=== PATIENT | male | born 1935 | race Caucasian/White ===

== ENCOUNTER 2019-07-03 10:16 | Emergency (ER) | payer MEDICARE ==
[~2019-07-03] VITALS: Ht 180.3 cm; Wt 120.2 kg
[2019-07-03] MEDS ORDERED: WARF4 PO (10:25)
[2019-07-03] MEDS ORDERED: FUROSEMIDE40 MG PO (10:25)
[2019-07-03] MEDS ORDERED: Klor-Con 1010 MEQ (10:25)
[2019-07-03 11:24] LABS: BASOPHILS ABSOLUTE AUTO 0.03 K/mm3 (0.00-0.23); BASOPHILS PERCENT AUTO 0 % (0-2); EOSINOPHILS ABSOLUTE AUTO 0.27 K/mm3 (0.00-0.68); EOSINOPHILS PERCENT AUTO 4 % (0-6); Hematocrit 37.7 % (37.0-53.0); Hemoglobin 11.5 g/dL (13.5-17.5); IMMATURE GRAN ABSOLUTE AUTO 0.03 K/mm3 (0.00-0.10); IMMATURE GRAN PERCENT AUTO 0 % (0-1); LYMPHOCYTES PERCENT AUTO 15 % (21-46); MONOCYTES ABSOLUTE AUTO 0.67 K/mm3 (0.16-1.47); MONOCYTES PERCENT AUTO 9 % (4-13); Mean Corpuscular HGB Conc 30.5 g/dL (31.5-36.5); Mean Corpuscular Volume 95 fL (80-100); Mean Platelet Volume 10.7 fL (9.1-12.4); NEUTROPHILS PERCENT AUTO 71 % (41-73); Platelet Count 199 K/mm3 (150-400); RDW Coefficient Variation 14.8 % (11.7-14.2); RDW Standard Deviation 51.8 fL (35.1-46.3); Red Blood Cell Count 3.97 M/mm3 (4.30-5.90)
[2019-07-03 11:32] LABS: Alanine Aminotransfer (ALT/SGP 21 U/L (12-78); Albumin, Blood 3.4 g/dL (3.4-5.0); Albumin/Globulin Ratio 0.8 (0.8-1.8); Alk Phos 109 U/L (50-136); Anion Gap 6 mmol/L (6-16); Aspartate Aminotrans (AST/SGOT 24 U/L (12-37); Bilirubin, Total 0.9 mg/dL (0.1-1.0); Blood Urea Nitrogen 25 mg/dL (8-24); CO2, Blood 23 mmol/L (21-32); Calcium, Blood 8.4 mg/dL (8.5-10.1); Chloride, Blood 112 mmol/L (98-108); Globulin, Blood 4.4 g/dL (2.2-4.0); Glomerular Filtration Rate >60 (60-); Glucose, Blood 87 mg/dL (70-99); Sodium, Blood 141 mmol/L (136-145); Total Protein, Blood 7.8 g/dL (6.4-8.2)
[2019-07-03 11:49] LABS: Prothrombin Time Results 57.4 Sec (9.7-11.5)
[2019-07-03 12:17] LABS: International Normalized Ratio 5.93
== END 2019-07-03 13:15 | disposition home or self-care (01) ==
LOC: ER 10:16
PROVIDERS: Emergency Medicine
DX: R79.1 Abnormal coagulation profile (principal); M79.671 Pain in right foot; G89.29 Other chronic pain
CPT/HCPCS: 36415; 80053; 85025; 85610; 99283

== ENCOUNTER 2023-12-31 14:07 | Observation (INO) | payer MEDICARE ==
[~2023-12-31] VITALS: Ht 180.3 cm; Wt 84.0 kg
[~2023-12-31 14:07] MED LIST: FUROSEMIDE40 MG PO; Klor-Con 1010 MEQ; WARF4 PO
[2023-12-31 15:41] LABS: BASOPHILS ABSOLUTE AUTO 0.04 K/mm3 (0.00-0.23); BASOPHILS PERCENT AUTO 1 % (0-2); EOSINOPHILS ABSOLUTE AUTO 0.12 K/mm3 (0.00-0.68); EOSINOPHILS PERCENT AUTO 2 % (0-6); Hematocrit 36.4 % (37.0-53.0); Hemoglobin 11.7 g/dL (13.5-17.5); IMMATURE GRAN ABSOLUTE AUTO 0.02 K/mm3 (0.00-0.10); IMMATURE GRAN PERCENT AUTO 0 % (0-1); LYMPHOCYTES ABSOLUTE AUTO 0.65 K/mm3 (0.84-5.20); LYMPHOCYTES PERCENT AUTO 11 % (21-46); MONOCYTES ABSOLUTE AUTO 0.58 K/mm3 (0.16-1.47); MONOCYTES PERCENT AUTO 10 % (4-13); Mean Corpuscular HGB 33.3 pg (26.0-34.0); Mean Corpuscular HGB Conc 32.1 g/dL (31.5-36.5); Mean Corpuscular Volume 104 fL (80-100); Mean Platelet Volume 11.5 fL (9.1-12.4); NEUTROPHILS ABSOLUTE AUTO 4.68 K/mm3 (1.96-9.15); NEUTROPHILS PERCENT AUTO 77 % (41-73); Platelet Count 138 K/mm3 (150-400); RDW Coefficient Variation 13.7 % (11.7-14.2); RDW Standard Deviation 52.1 fL (35.1-46.3); Red Blood Cell Count 3.51 M/mm3 (4.30-5.90); White Blood Cell Count 6.09 K/mm3 (4.00-11.30)
[2023-12-31 16:08] LABS: Albumin, Blood 3.5 g/dL (3.4-5.0); Albumin/Globulin Ratio 1.1 (0.8-1.8); Bilirubin, Total 1.4 mg/dL (0.1-1.0); Bun/Creatinine Ratio 23.1 (12.0-20.0); Calcium, Blood 8.6 mg/dL (8.5-10.1); Creatinine, Blood 1.3 mg/dL (0.60-1.20); Globulin, Blood 3.3 g/dL (2.2-4.0); Potassium, Blood 4.6 mmol/L (3.5-5.5); Total Protein, Blood 6.8 g/dL (6.4-8.2)
[2023-12-31] MEDS ORDERED: Enoxaparin 40 MG/0.4 ML SYR SC SCH (17:00)
[2023-12-31] MEDS ORDERED: Ondansetron HCl 2 MG / ML 2ML Vial IV PRN (17:00)
--- NOTE | 2023-12-31 17:36 | NUR ---
Pt was brought into ED after being evaluated by HHRN and found to have asymptomatic bradycardia. His CXR showed an extremely enlarged heart. According to pt's daughter in law Nikia, the pt does not and has not been interested in being admitted to the hospital and states he "just wants to go home." The daughter in law Nikia reports the place the pt has been living has been difficult to deal with over differences of opinion related to his care and needs. According to Nikia, the pt's PCP has asked him to have echo and possible pacer placed for sometime, but the patient has continued to refuse. The patient tells me he "feels just fine," denies any SOB, weakness or dizziness. Pt's AD states he would not want to be kept alive using tube feedings or life support. Will f/u with a discussion with pt and family.
[2023-12-31 18:15] VITALS: BP 157/93
--- NOTE | 2023-12-31 18:17 | NUR ---
Pt's code status changed to DNR per Dr. Young to align with pt's wishes. Pt's son Efren is in agreement. I had a long discussion with pt's son Efren who states he is curious to see if his dad is willing to have any procedures or treatments after spending the night here in the hospital [facility]. Efren states his dad the patient was adamant there was nothing wrong with him, and didn't want to come to the hospital in the first place, but finally agreed. Everyone is agreeable to have further discussions in the morning to revisit the situation, as marilou Schwartz is thinking about hospice if the patient is also agreeable since the patient continues to remain asymptomatic and has declined a pacer multiple times in the past several years. The family still want to have a discussion with a physician before making any final decision. Pt will likely also need placement, but is private pay. Will discuss with CM in the morning.
--- NOTE | 2023-12-31 18:38 | NUR ---
ARRIVAL TO PCU 3 PT ARRIVED TO PCU3 AT APPROXIMATELY 1800. PT 1 ASSIST TO STAND PIVOT FROM ER GURNEY TO HOSPITAL BED. PT A&Ox4, [employer] [place] [employer] NEEDS APPROPRIATELY. ORIENTED TO CALL LIGHT/UNIT. ABRASION ON COCCYX, MEPILEX IN PLACE, PHOTO IN CHART. SpO2> 92% RA, DENIES SOB. AFIB 30-50's, ASYMPTOMATIC, BP STABLE, DENIES CP/PRESSURE. BED IN LOWEST POSITION w/ BED ALARM ON, CALL LIGHT IN REACH. NO OTHER EVENTS, WILL REPORT TO ONCOMING RN.
--- NOTE | 2023-12-31 19:25 | NUR ---
ASSUMED CARE OF PATIENT AT 1900. REPORT RECEIVED FROM QUINTEN SCHROEDER. PT UP IN BED EATING DINNER WITH SON AT BEDSIDE. MONITOR SHOWS SB WITH HR IN 40'S, BP 157/93. DENIES CP OR SOB. NO ACUTE NEEDS IDENTIFED AT THIS TIME. SEE SHIFT ASSESSMENT FOR FULL DETAILS.
[2023-12-31 20:05] VITALS: BP 116/55
[2023-12-31 21:38] LABS: Source, Urine Clean Catch
[2023-12-31 21:41] LABS: Bilirubin, Urine Neg (Neg); Blood, Urine Neg (Neg); Glucose Qualitative, Urine Neg (Neg); Ketones, Urine Neg (Neg); Leukocyte Esterase, Urine 2+ (Neg); Nitrite, Urine Neg (Neg); Protein, Urine 1+ (Neg); Urobilinogen, Urine NORM (Normal)
[2023-12-31 21:46] LABS: Appearance, Urine Clear (Clear); Color, Urine Yellow (P-Yellow)
[2023-12-31 21:47] LABS: Bacteria Few /hpf; Hyaline Casts 0-2 /lpf (0-2); Red Blood Cells, Urine Not Seen /hpf (0-2); Squamous Epithelial Cells Few /hpf (Few)
[2023-12-31 23:24] VITALS: BP 129/77
[2024-01-01 03:20] VITALS: BP 134/57
[2024-01-01 04:07] LABS: BASOPHILS ABSOLUTE AUTO 0.05 K/mm3 (0.00-0.23); BASOPHILS PERCENT AUTO 1 % (0-2); EOSINOPHILS ABSOLUTE AUTO 0.18 K/mm3 (0.00-0.68); EOSINOPHILS PERCENT AUTO 3 % (0-6); Hematocrit 37.5 % (37.0-53.0); Hemoglobin 11.9 g/dL (13.5-17.5); IMMATURE GRAN ABSOLUTE AUTO 0.02 K/mm3 (0.00-0.10); IMMATURE GRAN PERCENT AUTO 0 % (0-1); LYMPHOCYTES PERCENT AUTO 23 % (21-46); MONOCYTES ABSOLUTE AUTO 0.57 K/mm3 (0.16-1.47); MONOCYTES PERCENT AUTO 11 % (4-13); Mean Corpuscular HGB 32.8 pg (26.0-34.0); Mean Corpuscular HGB Conc 31.7 g/dL (31.5-36.5); Mean Corpuscular Volume 103 fL (80-100); Mean Platelet Volume 11.8 fL (9.1-12.4); NEUTROPHILS ABSOLUTE AUTO 3.31 K/mm3 (1.96-9.15); NEUTROPHILS PERCENT AUTO 62 % (41-73); Platelet Count 127 K/mm3 (150-400); RDW Coefficient Variation 13.5 % (11.7-14.2); Red Blood Cell Count 3.63 M/mm3 (4.30-5.90); White Blood Cell Count 5.33 K/mm3 (4.00-11.30)
[2024-01-01 04:36] LABS: Albumin, Blood 3.5 g/dL (3.4-5.0); Albumin/Globulin Ratio 1.1 (0.8-1.8); Bilirubin, Total 1.5 mg/dL (0.1-1.0); Bun/Creatinine Ratio 23.7 (12.0-20.0); Calcium, Blood 8.8 mg/dL (8.5-10.1); Creatinine, Blood 1.14 mg/dL (0.60-1.20); Globulin, Blood 3.1 g/dL (2.2-4.0); Potassium, Blood 4.4 mmol/L (3.5-5.5); Total Protein, Blood 6.6 g/dL (6.4-8.2)
--- NOTE | 2024-01-01 05:04 | NUR ---
SHIFT SUMMARY PT REMAINED ALERT AND ORIENTED X 4 T/O ENTIRETY OF SHIFT. ABLE TO FOLLOW COMMANDS, MAKE PURPOSEFUL MOVEMENTS, AND MAKE NEEDS KNOWN. AFEBRILE AND DENIES PAIN. PT IS VERY HARD OF HEARING. ABLE TO STAND AT BESIDE WITH ASSISTANCE GUIDING WIRES. MONITOR SHOWED AFIB WITH HR 30'S-50'S. BP STABLE. ON ROOM AIR WITH O2 SATURATIONS > 92%. ON BM THIS SHIFT. DENIES N/V. TOLERATES PO INTAKE WELL. UCX PENDING. 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 PIV TO LAC. WILL CONTINUE TO MONITOR AND REPORT TO ONCOMING RN.
[2024-01-01 07:16] VITALS: BP 144/123
--- NOTE | 2024-01-01 12:45 | NUR ---
Patient is sitting on the EOB and alert. He tells me that he is frustrated that he is not discharged yet. He states that he stokes not want any procedures done and that he is ready to . He says that he is waiting for his son to come back. He values his son's opinions but he is set on not having any treatment. We discuss his goals to move to the [facility] and slowly or quickly there. He shows signs of reduced stress and less aggitation. I will continue to remain available.
--- NOTE | 2024-01-01 14:08 | NUR ---
Pt was seen by cardiology and ECHO was ordered. Dr. Vides found the patient has severe aortic stenosis and pulmonary hypertension. After discussion with pt, his son and daughter in law, they have decided to pursue hospice at this time, and have chosen [facility]. Info relayed to childcare administrator who is sending hospice referral. The patient is going to be discharging to [facility] as a new resident. The patient and family state they're very pleased with this plan. Pt could move into [facility] as early as tomorrow. Pt remains asymptomatic with bradycardia, a-fib and even the pauses noted during his sleep.
[2024-01-01] MEDS ORDERED: COLCHICINE0.6 MG PO (14:22)
[2024-01-01] MEDS ORDERED: TAMS.4ER PO (14:22)
[2024-01-01] MEDS ORDERED: VITAMIN D5000 UNIT PO (14:22)
[2024-01-01] MEDS ORDERED: MULVITA PO (14:23)
--- NOTE | 2024-01-01 14:38 | NUR ---
TRANSFER THIS RN SHIFT COMPLETE, GIVING REPORT TO QUINTEN MICHEL. PT A&OX4, PAUMA. BRADYCARDIA AFIB NOTED. MD RUFF W/ CARDIOLOGY CONSULT THIS AM. MD YATESILING IN ROOM FOR CONSULT. ECHO ORDERED. PALLIATIVE CARE IN ROOM. PT AND PT'S SON/DIL EMBRACED DECISION TO GO TO [facility]. MEDICATION RECORD RECEIVED AND UPDATED IN MAR THIS SHIFT. PT SITTING IN CHAIR, TALKING WITH SON. CALL LIGHT IN REACH.
[2024-01-01 14:44] VITALS: BP 162/95
[2024-01-01 15:09] VITALS: BP 169/81
--- NOTE | 2024-01-01 17:18 | NUR ---
Pt exhibiting signs of agitation; is attempting to get dressed and leave the hospital. Family state he does become extremely anxious in the hospital, and they are having to take turns sitting with him to keep him calm. They request something for anxiety to assist in keeping pt from becoming agitated and attempting to leave. Spoke to Dr. Zhu, she states she will order something appropriate for him.
[2024-01-01] MEDS ORDERED: QUEtiapine Fumarate 50 MG TAB PO PRN (17:20)
--- NOTE | 2024-01-01 17:34 | NUR ---
EVENING SUMMARY ASSUMED CARE OF THE PT AROUND 1430. PT IS [place] AND FORGETFUL. FAMILY AT THE BEDSIDE MAJORITY OF THE SHIFT. VS STABLE, ON TELE HE IS AFIB 30'S-50'S. HE REMAINS ON RA AND DENIES ANY SOB. THE PT IS GETTING ANXIOUS AND SLIGHTLY AGGITATED THIS EVENING BECAUSE HE IS WANTING TO LEAVE. HE HAS ATTEMPTED LEAVEING TWICE WHILE I WAS IN THE ROOM. BED ALARM ON. FAMILY HAS BEEN ASSISTING WITH KEEPING THE PT CALM. SONY, THE PT'S DAUGHTER N LAW, STATES THAT HE HAS DEMENTIA AND IS VERY FORGETFUL. PALLIATIVE CARE CONTACTING HOSP FOR MEDICATIONS TO HELP WITH ANXIETY AND AGGITATION. PLAN FOR D/C ON HOSPICE TO [facility]. SEE NOTES FOR UPDATES.
[2024-01-01 20:08] VITALS: BP 147/80
[2024-01-02 00:20] VITALS: BP 144/67
[2024-01-02 04:28] VITALS: BP 117/72
--- NOTE | 2024-01-02 04:49 | NUR ---
SHIFT SUMMARY. SHIFT HAS BEEN LARGELY UNREMARKABLE. PT WAS INITIALLY AOX2-3 ON SHIFT ASSESSMENT BUT PT HAS GOTTEN MORE CONFUSED SHIFT HAS GONE ALONG. IMPULSIVE, DOES NOT USE CALL LIGHT, UNABLE TO CLEARLY COMMUNICATE NEEDS TO STAFF AT TIMES. DESPITE THIS REMAINS MOSTLY PLEASANT, COOPERATIVE, AND EASY TO REDIRECT. NO PAIN REPORTED THROUGHOUT SHIFT. EARLY THIS MORNING PT PULLED IV AND WOULD NOT KEEP TELE IN PLACE. SPOKE WITH DR. MEMBRENO AND EXPLAINED THAT PT IS DNR AND ANTICIPATING DISCHARGING ON HOSPICE TODAY. DCd TELE ORDER AND ENTERED NO IV ORDER. OTHERWISE, PT HAS SLEPT THROUGH MUCH OF SHIFT. REMAINS BRADYCARDIC BUT OTHERWISE VITALS HAVE REMAINED STABLE. BED LOCKED IN LOWEST POSITION. BED ALARM ACTIVE. CALL LIGHT LEFT WITHIN REACH. CONTINUING TO MONITOR.
[2024-01-02 07:23] VITALS: BP 121/76
[2024-01-02] MEDS ORDERED: Apixaban 5 MG Tab PO SCH (09:00)
[2024-01-02 11:02] VITALS: BP 134/87
--- NOTE | 2024-01-02 11:58 | NUR ---
MORNING SUMMARY THE PT IS ALERT AND ORIENTEDX3. HE HAS BEEN TRYING TO LEAVE A FEW TIMES THIS MORNING. FAMILY IS AT BEDSIDE AND ABLE TO HELP CALM DOWN HIS ANXIETY. THE PT'S VS ARE STABLE. SP02 >90% ON RA. HE DOES NOT HAVE ANY IV'S OR TELEMETRY. HE WILL BE DISCHARGING TO [facility]. NO ACUTE EVENTS THIS MORNING. SEE NOTES FOR UPDATES.
--- NOTE | 2024-01-02 12:13 | NUR ---
REPORT GIVEN TO CHANTAL SHIPLEY AT [facility]. STILL WAITING ON TRANSPORT AT THIS TIME. ETA [phone]
== END 2024-01-02 13:18 | disposition home or self-care (01) ==
LOC: ER 14:07 → PCU 14:08
PROVIDERS: Emergency Medicine; ADMIT Internal Medicine
DX: I48.91 Unspecified atrial fibrillation (principal); R00.1 Bradycardia, unspecified; I35.0 Nonrheumatic aortic (valve) stenosis; N28.9 Disorder of kidney and ureter, unspecified; D64.9 Anemia, unspecified; D69.6 Thrombocytopenia, unspecified; F03.90 Unspecified dementia, unspecified severity, without behavioral disturbance, psychotic disturbance, mood disturbance, and anxiety; Z66 Do not resuscitate
CPT/HCPCS: 36415; 71045; 76770; 80053; 81001; 83880; 84439; 84443; 84484; 85025; 87086; 93005; 93010; 93306; 96372; 99285-25; A9270; G0378; J1650